=== PATIENT | female | born 1950 | race Caucasian/White ===

== ENCOUNTER → 2017-11-16 | Outpatient (CLI) | payer OTHER ==
--- NOTE | 2017-11-17 09:01 | RAD ---
EXAM DESCRIPTION: Ankle,Right 3 Views CLINICAL HISTORY: 67 years, Female, PAIN IN RIGHT ANKLE COMPARISON: None. TECHNIQUE: AP/lateral/oblique of the right ankle FINDINGS: Intact medial and lateral malleolus. There is no soft tissue swelling laterally or medially. Proximal metatarsals appear normal. Mild degenerative spurring of the dorsal midfoot. Intact dome of the talus. Lateral view shows no evidence of fracture of the body of the talus or calcaneus. Prominent plantar and dorsal calcaneal spurring is seen. No ankle joint narrowing, spurring or effusion. IMPRESSION: Negative for fracture or dislocation. Electronically signed by: Adilson Tapia MD 11/17/2017 8:58 AM CDT
--- NOTE | 2017-11-17 09:03 | RAD ---
EXAM DESCRIPTION: Ankle,Left 3 Views CLINICAL HISTORY: 67 years, Female, PAIN IN LEFT ANKLE COMPARISON: None. TECHNIQUE: AP/lateral/oblique of the left ankle FINDINGS: Intact medial and lateral malleolus. There is no soft tissue swelling laterally or medially. Proximal metatarsals appear intact. Mild degenerative spurring of the dorsal midfoot. Intact dome of the talus. Lateral view shows no evidence of fracture of the body of the talus or calcaneus. Dorsal and plantar calcaneal spurring is seen. No ankle joint narrowing, spurring or effusion. IMPRESSION: Negative for fracture or dislocation. Electronically signed by: Adilson Tapia MD 11/17/2017 9:01 AM CDT
--- NOTE | 2017-11-17 09:04 | RAD ---
EXAM DESCRIPTION: Hip,Left 2 Views CLINICAL HISTORY: 67 years, Female, PAIN IN LEFT HIP COMPARISON: None TECHNIQUE: AP and frog leg lateral views of the hip FINDINGS: 2 views of the left hip reveal no fracture or dislocation. No lytic bone lesion. Marked narrowing of the joint space is seen with sclerosis and eburnation on both sides of the joint. Prominent spurring at the left femoral head neck junction. Degenerative changes are seen in the lower L-spine and SI joints and pubic symphysis. IMPRESSION: Negative for fracture or dislocation. Advanced osteoarthrosis of the left hip. Electronically signed by: Adilson Tapia MD 11/17/2017 9:02 AM CDT
--- NOTE | 2017-11-17 09:05 | RAD ---
EXAM DESCRIPTION: Hip,Right 2 Views CLINICAL HISTORY: 67 years, Female, PAIN IN RIGHT HIP COMPARISON: None TECHNIQUE: AP and frog leg lateral views of the hip FINDINGS: 2 views of the right hip reveal no fracture or dislocation. No lytic bone lesion. Degenerative narrowing of the right hip joint space is seen with spur formation at the femoral head neck junction. Findings are consistent with osteoarthrosis which is not as advanced as on the left side. Degenerative changes are seen at the SI joints and pubic symphysis and in the lower lumbar spine. IMPRESSION: Negative for fracture or dislocation. Degenerative changes of right hip osteoarthrosis. Electronically signed by: Adilson Tapia MD 11/17/2017 9:03 AM CDT
--- NOTE | 2017-11-17 09:07 | RAD ---
EXAM DESCRIPTION: Knee,Left Complete CLINICAL HISTORY: 67 years, Female, PAIN IN LEFT KNEE COMPARISON: None TECHNIQUE: Three views of the left knee FINDINGS: Orthopedic hardware is seen in the proximal tibia with healed lateral tibial plateau fracture. Severe degenerative narrowing of the medial compartment is seen with medial and lateral joint line spurring and prominent spurring of the tibial spine. Standing views are obtained. Lateral view shows severe narrowing of the patellofemoral joint with posterior patellar spurring and anterior femoral trochlear spurring. [place] patellar view shows degenerative narrowing with prominent spurring. IMPRESSION: Advanced osteoarthrosis of the left knee. Orthopedic hardware in the proximal left tibia. Electronically signed by: Adilson Tapia MD 11/17/2017 9:05 AM CDT
--- NOTE | 2017-11-17 09:08 | RAD ---
EXAM DESCRIPTION: Pelvis CLINICAL HISTORY: 67 years Female, PAIN IN LEFT HIP COMPARISON: None. TECHNIQUE: Single frontal x-ray view of the pelvis and hips FINDINGS: Pelvic ring appears intact. Degenerative changes are seen in the lower L-spine and at the pubic symphysis. Degenerative osteoarthrosis of the hips is seen left worse than right with joint space narrowing and spurring around the femoral head neck junctions. No fracture or dislocation. No lytic osseous lesion. IMPRESSION: Degenerative osteoarthrosis of the hips, left worse than right. Electronically signed by: Adilson Tapia MD 11/17/2017 9:06 AM CDT
--- NOTE | 2017-11-17 09:11 | RAD ---
EXAM DESCRIPTION: Knee,Right Complete CLINICAL HISTORY: 67 years, Female, PAIN IN RIGHT KNEE COMPARISON: None TECHNIQUE: Three views of the right knee FINDINGS: No fracture or dislocation. Bones appear mildly osteopenic with prominent trabecular pattern. Markedly narrowed of medial more than lateral compartments on standing frontal view. Prominent spurring is seen at the medial and lateral joint lines. There is evidence of complete cartilage loss in the medial compartment. Lateral view shows normal position of the patella. Severe spurring at the patellofemoral joint with marked joint space narrowing. No definite suprapatellar knee joint effusion. Normal contour of quadriceps and patellar tendons. Marked spurring of the posterior femoral condyles. Mild lateral tilt of the patella is seen without subluxation on patellar sunrise view. Prominent posterior patellar and anterior femoral trochlear spurring. IMPRESSION: Advanced osteoarthrosis of the right knee. Electronically signed by: Adilson Tapia MD 11/17/2017 9:08 AM CDT
== END ==
LOC: RAD 09:15
PROVIDERS: ATTEND Orthopaedic Surgery
DX: M25.552 Pain in left hip (principal); M25.551 Pain in right hip; M25.561 Pain in right knee; M25.562 Pain in left knee; M25.571 Pain in right ankle and joints of right foot; M25.572 Pain in left ankle and joints of left foot

== ENCOUNTER → 2017-12-14 | Outpatient (CLI) | payer OTHER | LOC: RESP 10:14 | PROVIDERS: ATTEND Orthopaedic Surgery | DX: Z01.818 Encounter for other preprocedural examination (principal) ==

== ENCOUNTER 2017-12-19 05:31 | Inpatient (IN) | payer OTHER ==
--- NOTE | 2017-12-18 18:19 | HP ---
CHIEF COMPLAINT: Right knee pain. HISTORY OF PRESENT ILLNESS: Rola is a 67 year-old female with a history of severe knee pain that has been going on for years. Rola has had conservative measures, however has failed to gain relief. Because of Rola's ongoing severe pain she has requested operative intervention. After discussing the risks, benefits, and alternatives to that, she has given informed consent for that. PAST SURGICAL HISTORY: 1. Previous tibial plateau fracture surgery but she is unsure and there is no residual hardware. CURRENT MEDICATIONS: 1. Metformin. 2. Nabumetone. 3. Lisinopril. 4. Estradiol. 5. Atorvastatin. 6. Omeprazole. 7. Tramadol. ALLERGIES: PENICILLIN. CODE STATUS: FULL CODE. IMMUNIZATIONS: Up to date. FAMILY HISTORY: None pertinent to today's complaints. SOCIAL HISTORY: She does not drink, smoke or use any illicit drugs. REVIEW OF SYSTEMS: Negative except as indicated in the History of Present Illness. PHYSICAL EXAMINATION: VITAL SIGNS: Blood pressure 144/60, pulse 70. Height 4' 11", weight 152. MENTAL STATUS: The patient is awake, alert, and is able to give a good history and participate in the physical. The patient is oriented to person, place and time. SKIN: Normal tone and turgor. HEENT: Normocephalic, atraumatic. Pupils equal, round and reactive. Mucosal membranes are moist. NECK: Normal range of motion. No thyromegaly, no lymphadenopathy. CHEST: Normal respiratory excursion. CARDIAC: Regular rate and rhythm. No murmurs, rubs or gallops. MUSCULOSKELETAL: The bilateral upper extremities have full active range of motion without significant pain. She has intact sensation. Strength is 5/5. They are warm and well perfused. The left lower extremity shows full range of motion in the hip. Knee extension is full and she has no varus, valgus, anterior or posterior laxity, but she does have crepitus. She does have pretty severe tenderness diffusely about the knee. The right lower extremity shows full range of motion in the hip. She has crepitus with pain throughout the range of motion in the knee. She has no varus, valgus, anterior or posterior laxity, but she does have a varus deformity. She has 5/5 strength. X-RAYS: X-rays show severe arthritis. ASSESSMENT: 1. Arthritis. PLAN: The plan at this point is for total knee arthroplasty. We have discussed the risks, benefits, and alternatives to that and she has given informed consent for that. #[id number] [facility]
[2017-12-19] MEDS ORDERED: SODIUM CHL 0.9% 50ML MIN-BAG+ 50 ML IVPB ONE ×3 (06:45→19:53)
[2017-12-19] MEDS ORDERED: ceFAZolin SODIUM 1 GM VIAL ONE ×4 (06:45→19:53)
[2017-12-19] MEDS ORDERED: VANCOMYCIN HCL INJ 1,000 MG VIAL IVPB ONE ×4 (06:45→19:53)
[2017-12-19] MEDS ORDERED: TRANEXAMIC ACID 1,000 MG/10 ML VIAL ONE ×2 (06:45→06:46)
[2017-12-19] MEDS ORDERED: LACTATED RINGERS 1,000 ML ONE ×2 (06:45→07:02)
[2017-12-19] MEDS ORDERED: SODIUM CHLORIDE 0.9% 250ML 250 ML ONE ×3 (06:46→19:52)
[2017-12-19] MEDS ORDERED: SODIUM CHLORIDE 0.9% 100ML 100 ML IVPB ONE (06:46)
[2017-12-19] MEDS ORDERED: BUPIVACAINE 0.25% W/EPI 50 ML VIAL INJ ONE (06:48)
[2017-12-19] MEDS ORDERED: MORPHINE SULFATE *EPIDURAL* 0.5 MG/ML VIAL INJ ONE (07:00)
[2017-12-19] MEDS ORDERED: fentaNYL CITRATE INJ 50 MCG/ML AMP ONE (07:01)
[2017-12-19] MEDS ORDERED: MIDAZOLAM INJ 5 MG/5 ML VIAL ONE (07:02)
[2017-12-19] MEDS ORDERED: LIDOCAINE 2 % GEL 5 ML TUBE TOP ONE (07:02)
[2017-12-19] MEDS ORDERED: ONDANSETRON INJ 4 MG/2 ML VIAL IV PRN (07:09)
[2017-12-19] MEDS ORDERED: ZOLPIDEM TARTRATE 5 MG TAB PO PRN (07:09)
[2017-12-19] MEDS ORDERED: MORPHINE SULFATE INJ 10 MG/ML VIAL IM PRN (07:09)
[2017-12-19] MEDS ORDERED: TRANEXAMIC ACID INJ 1,000 MG in SODIUM CHLORIDE 0.9% 100ML 100 ML IVPB ONE (07:09)
[2017-12-19] MEDS ORDERED: PROMETHAZINE HCL INJ 12.5 MG in SODIUM CHLORIDE 0.9% 50ML 50 ML IVPB PRN (07:09)
[2017-12-19] MEDS ORDERED: ALUMINUM & MAGNESIUM HYDROXIDE 30 ML UD PO PRN (07:09)
[2017-12-19] MEDS ORDERED: MORPHINE SULFATE INJ 10 MG/ML VIAL IV PRN (07:09)
[2017-12-19] MEDS ORDERED: ACETAMINOPHEN 325 MG TAB PO PRN (07:09)
[2017-12-19] MEDS ORDERED: NALOXONE HCL INJ 0.4 MG/ML VIAL IV PRN (07:09)
[2017-12-19] MEDS ORDERED: SODIUM CHLORIDE 0.9% (FLUSH) 10 ML SYG IV PRN (07:09)
[2017-12-19] MEDS ORDERED: CYCLOBENZAPRINE HCL 10 MG TAB PO PRN (07:09)
[2017-12-19] MEDS ORDERED: TEMAZEPAM 15 MG CAP PO PRN (07:09)
[2017-12-19] MEDS ORDERED: DEX 5% W/NACL 0.45% 1000ML 1,000 ML IVS PRN (07:09)
[2017-12-19] MEDS ORDERED: BENZOCAINE-MENTH LOZ (CEPACOL) 1 EA LOZ MT PRN (07:09)
[2017-12-19] MEDS ORDERED: traMADol HCL 50 MG TAB PO PRN (07:09)
[2017-12-19] MEDS ORDERED: ACETAMINOPHEN 500 MG TAB PO PRN (07:09)
[2017-12-19] MEDS ORDERED: PROMETHAZINE HCL INJ 25 MG in SODIUM CHLORIDE 0.9% 50ML 50 ML IVPB PRN (07:09)
[2017-12-19] MEDS ORDERED: BISACODYL SUPPOSITORY 10 MG PR PRN (07:09)
[2017-12-19] MEDS ORDERED: MORPHINE PCA 1 MG/ML 100 ML BAG IVPB SCH (07:30)
[2017-12-19] MEDS ORDERED: PROPOFOL 200 MG/20 ML VIAL IV ONE (10:00)
--- NOTE | 2017-12-19 11:55 | RAD ---
EXAM DESCRIPTION: Knee,Right 2 or More Views CLINICAL HISTORY: 67 years, Female, TKA COMPARISON: None TECHNIQUE: Two views of the right knee FINDINGS: Total right hip arthroplasty is noted. No fracture or dislocation. Bones appear normally mineralized with normal trabecular pattern. The soft tissues is consistent with postoperative state. No complicating fracture. Lateral view shows normal position of the patella. IMPRESSION: Negative for fracture or dislocation. Electronically signed by: Adilson Tapia MD 12/19/2017 11:54 AM CDT
[2017-12-19] MEDS ORDERED: DEXTROSE 50% 25 GM/50 ML SYG IV PRN (12:01)
[2017-12-19] MEDS ORDERED: GLUCAGON INJ 1 MG VIAL SUBCU PRN (12:01)
[2017-12-19] MEDS: IV SET AND CAP CHANGE INJ INJ SCH (12:37)
[2017-12-19] MEDS: CELECOXIB 100 MG CAP PO SCH ×2 (12:37→16:21)
[2017-12-19] MEDS: MAGNESIUM OXIDE 400 MG TAB PO SCH (12:38)
[2017-12-19] MEDS: SODIUM CHLORIDE 0.45% 1000ML 1,000 ML IVS PRN (12:43)
[2017-12-19] MEDS: ceFAZolin SODIUM 1 GM in SODIUM CHL 0.9% 50ML MIN-BAG+ 50 ML IVPB SCH (15:59)
[2017-12-19] MEDS: INSULIN LISPRO 100 UNITS/ML PEN SUBCU SCH ×2 (16:20→20:56)
--- NOTE | 2017-12-19 17:22 | PCM.CORE ---
Physician DVT/VTE - Nurse DVT Assessment & Total Each Risk Factor Represents 5 Points: Elective Arthtroplasty Each Risk Factor Represents 2 Points: Age 60-74 Each Risk Factor is 1 Point: Obesity (BMI >25) DVT Assessment Score: 8 - 5 or more Very High Risk Treatments: Early Ambulation *, Sequential Compression Device Pharmacological: Enoxaparin 30mg SQ BID
[2017-12-19] MEDS: VANCOMYCIN HCL INJ 1,000 MG in SODIUM CHLORIDE 0.9% 250ML 250 ML IVPB SCH (17:44)
[2017-12-19] MEDS ORDERED: ENOXAPARIN SODIUM 30 MG/0.3 ML SYG SUBCU ONE (19:53)
[2017-12-19] MEDS: DOCUSATE CALCIUM 240 MG CAP PO SCH (20:37)
[2017-12-19] MEDS: ENOXAPARIN SODIUM 30 MG/0.3 ML SYG SUBCU SCH (21:45)
[2017-12-20] MEDS: ceFAZolin SODIUM 1 GM in SODIUM CHL 0.9% 50ML MIN-BAG+ 50 ML IVPB SCH ×2 (00:05→08:16)
[2017-12-20] MEDS: VANCOMYCIN HCL INJ 1,000 MG in SODIUM CHLORIDE 0.9% 250ML 250 ML IVPB SCH (06:15)
[2017-12-20] MEDS: INSULIN LISPRO 100 UNITS/ML PEN SUBCU SCH ×4 (07:01→21:00)
[2017-12-20] MEDS: HYDROcodone 5MG/APAP 325MG 1 EA TAB PO PRN ×2 (07:44→13:24)
[2017-12-20] MEDS: CELECOXIB 100 MG CAP PO SCH ×3 (07:44→20:38)
[2017-12-20] MEDS ORDERED: SODIUM CHL 0.9% 50ML MIN-BAG+ 50 ML IVPB ONE (08:08)
[2017-12-20] MEDS ORDERED: ceFAZolin SODIUM 1 GM VIAL ONE (08:09)
[2017-12-20] MEDS: metFORMIN HCL 500 MG TAB PO SCH (08:15)
[2017-12-20] MEDS ORDERED: NON-FORMULARY MEDICATION 1 EA MIS (Lisinopril & Hydrochlorothiazi [Lisinopril/Hctz 20-12.5 PO SCH (09:00)
[2017-12-20] MEDS ORDERED: ATORVASTATIN 10 MG TAB PO SCH (09:00)
--- NOTE | 2017-12-20 09:11 | CONS ---
SUPERVISING PHYSICIAN: Amador Arevalo MD DATE OF CONSULTATION: 12/19/17 REASON FOR CONSULTATION: Right total knee arthroplasty. HISTORY OF PRESENT ILLNESS: Ms. Huang is a 67-year-old, female patient that has a longstanding history of severe knee pain. She has tried multiple conservative measures which have failed to gain any significant relief. Due to ongoing severe pain, she requested operative intervention. Today, she was admitted for elective right total knee arthroplasty that was performed by Dr. Isidro Thrasher. She was seen postoperatively after recovery and was in stable condition. PAST MEDICAL HISTORY: 1. Diabetes mellitus on oral therapy. 2. Hypertension3. 3 Osteoarthritis. PAST SURGICAL HISTORY: 1. Left knee tibial plateau fracture with placement of a plate. 2. . 3. Appendectomy. 4. Cholecystectomy. 5. Hysterectomy. 6. Right breast mass removal, benign. HOME MEDICATIONS: 1. Lisinopril/hydrochlorothiazide 20/12.5 mg 1 tablet b.i.d. 2. Glucosamine and chondroitin 500/400 1 capsule daily. 3. Estradiol 0.05 mg daily. 4. Coenzyme Q10 100 mg daily. 5. Lipitor 10 mg daily. 6. Tramadol 50 mg as needed. 7. Omeprazole 40 mg daily. 8. Fish oil 1 tablet daily. 9. Nabumetone 500 mg twice daily. 10. Metformin 500 mg daily. ALLERGIES: PENICILLIN. FAMILY HISTORY: Positive for diabetes mellitus on both mother and father's side. Her father is with pancreatic cancer. Her mother at young age of unknown causes. There are multiple female family members with breast cancer. SOCIAL HISTORY: The patient lives in [place], [place]. She is , retired. She has never smoked and does not drink alcohol. REVIEW OF SYSTEMS: CONSTITUTIONAL: Denies any fevers, chills. HEENT: Denies headaches, nasal congestion, sore throat, earaches. RESPIRATORY: Denies shortness of breath, coughing, wheezing. CARDIOVASCULAR: Denies chest pain, palpitations or syncopal episodes. GASTROINTESTINAL: Denies abdominal pain, constipation, diarrhea, nausea or vomiting. EXTREMITIES: As noted in history of present illness. NEUROLOGIC: She denies any ataxia, seizures, syncopal episodes or other neurologic deficits. PHYSICAL EXAMINATION: VITAL SIGNS: Temperature 98.0. Pulse 138/72. Respirations 16. Saturation 96% on room air. Admission weight 69.4 kg. GENERAL: The patient is seen in the postoperative state. She is alert. She is utilizing CPM and visiting with family. She appears to be comfortable and in no acute distress. HEENT: Tympanic membranes clear bilaterally. Oropharynx is pink, moist without any lesions. NECK: Supple, nontender with full range of motion. No jugular venous distention noted. RESPIRATORY: Lungs clear to auscultation bilaterally without any rhonchi, wheezes, or rales. CARDIOVASCULAR: Regular rate and rhythm without any appreciable murmurs, gallops, or rubs. ABDOMEN: Soft, nontender. Positive bowel sounds. EXTREMITIES: Right knee has a bulky dressing in place currently with Iceman as well and is on CPM. Distal pulses are strong. Capillary refill is brisk. NEUROLOGIC: The patient is alert and oriented times three. LABORATORY: Postoperative hemoglobin and hematocrit pending. Blood sugar 121. RADIOLOGY: Knee x-ray, two view right knee, completed showing right total knee arthroplasty with no complicating fractures or dislocations with well positioning of the patella. ASSESSMENT: 1. Postoperative day 0 for an elective right total knee arthroplasty after failing to respond to conservative treatment measures, surgery being performed by Dr. Isidro Thrasher. 2. Osteoarthritis resulting in ongoing chronic knee pain failing to respond to conservative treatment measures requiring surgical intervention for symptom control. 3. Hypertension. 4. Diabetes mellitus on oral therapy. PLAN: The patient will be followed during her rehabilitation and physical therapy efforts postoperatively. We will monitor her blood sugars closely and vital signs. We will resume her home medications. She will be started on a sliding scale as per protocol. She will be on DVT prophylaxis as per protocol. I anticipate her length of stay to be 2 to 3 days and we will defer orthopedic management to Dr. Thrasher and physical therapy. Until discharge, we will continue to monitor the patient closely and treat appropriately with anticipation at discharge to have continued physical therapy at [facility]. #[id number] [facility]
[2017-12-20] MEDS: ESTRADIOL 0.05 MG TD SCH (09:12)
[2017-12-20] MEDS: hydroCHLOROthiazide 12.5 MG CAP PO SCH ×2 (09:21→20:38)
[2017-12-20] MEDS: LISINOPRIL 10 MG TAB PO SCH ×2 (09:22→20:38)
[2017-12-20] MEDS: OMEPRAZOLE CAP 20 MG CAP PO SCH (09:22)
[2017-12-20] MEDS: MAGNESIUM OXIDE 400 MG TAB PO SCH (09:22)
[2017-12-20] MEDS: ENOXAPARIN SODIUM 30 MG/0.3 ML SYG SUBCU SCH ×2 (10:43→21:42)
--- NOTE | 2017-12-20 11:24 | PN ---
DATE: 12/20/17 SUBJECTIVE: Ms. Huang is doing pretty well. She is up to the side of the bed. OBJECTIVE: Afebrile. Vital signs stable. Dressing is clean, dry and intact. ASSESSMENT: Status post total knee arthroplasty. PLAN: The plan at this point is for weight-bearing as tolerated along with CPM with increasing range of motion. [facility][id number] [facility]
--- NOTE | 2017-12-20 11:43 | OP ---
DATE OF PROCEDURE: 12/19/17 PREOPERATIVE DIAGNOSIS: 1. Right knee osteoarthritis. POSTOPERATIVE DIAGNOSIS: 1. Right knee osteoarthritis. PROCEDURE: 1. Right total knee arthroplasty. SURGEON: Isidro Thrasher MD. POLICE CADET: Severino Swartz CST, SA-C. ANESTHESIA: General. COMPLICATIONS: None. FINDINGS: Severe osteoarthritis of the knee with varus deformity. INDICATION: Ms. Huang has a long history of severe knee pain that has been progressively worse. She has had injections as well as physical therapy, however, has failed to gain relief and has noticed increasing deformity. Because of that, she has requested operative intervention. After discussing the risks, benefits and alternatives to that, the patient has given informed consent for total knee arthroplasty. PROCEDURE: The patient was brought to the Operating Room and placed in supine position. General anesthesia was induced and the patient's leg was sterilely prepped and draped. Following prepping and draping, the distal femur was exposed and using an intramedullary guide, the distal femoral cut was made. The appropriate sized cutting block was measured, pinned into place, and the anterior, posterior, and chamfer cuts were made. The ACL was transected and the tibia was subluxed. Both the medial and lateral menisci were removed. An intramedullary guide was used to make the proximal tibial cut. The appropriate sized base plate was placed and a trial polyethylene was placed. The trial femur was placed, the knee was reduced, and the knee was taken through a range of motion. The knee was stable in anterior, posterior, varus and valgus stress. The patella tracked anatomically without evidence of subluxation or dislocation. After trialing, the trial components were removed and the bony surfaces were thoroughly irrigated with saline. Following irrigation, the surfaces were dried and the final components were cemented into place. The excess cement was removed and the remaining cement was allowed to cure. The knee was again taken through a range of motion to confirm stability. The wound was then irrigated with saline and closure was performed using PDS to approximate the arthrotomy followed by closure of the subcutaneous tissues with a combination of running and interrupted Monocryl sutures. Sterile dressing was placed. The patient was awoken from anesthesia and taken to Recovery. POSTOPERATIVE INSTRUCTIONS: The patient will be weight-bearing as tolerated on postoperative day 1. COMPONENTS: [place] Triathlon knee, size 3 femur, size 3 tibia, 9 mm insert. [facility][id number] [facility]
--- NOTE | 2017-12-20 15:18 | PN ---
DATE: 12/20/17 SUPERVISING PHYSICIAN: Amador Arevalo M.D. SUBJECTIVE: The patient is lying in her hospital bed. She complained of nausea earlier but the medicine they are giving her is helping. Otherwise she complained of not being able to sleep last night. I informed her she has a sleeping pill that she can ask for and she needs to ask for that tonight. Otherwise denies chest pain, shortness of breath, constipation or diarrhea. OBJECTIVE: VITAL SIGNS: Temperature 99.5, pulse rate 80, blood pressure 154/75 , respiratory rate 18, O2 sat 92% on room air. RESPIRATORY: Essentially clear to auscultation bilaterally. CARDIAC: Regular rate and rhythm. EXTREMITIES: The dressing to her right knee is dry and intact. She is on the CPM machine at this time and her bilateral pedal pulses are palpable at +2 bilaterally. LABORATORY: Hemoglobin 10, hematocrit 30.1. Blood sugars have run between 104 and 142. All other labs and films have been reviewed via the EMR. ASSESSMENT: 1. Osteoarthritis of the right knee status post right total knee arthroplasty postoperative day #1. Surgery was performed by Dr. Isidro Thrasher, orthopedic surgeon. 2. Osteoarthritis resulting in ongoing chronic knee pain failing to respond to conservative treatment requiring surgery for symptomatic control. 3. Hypertension. 4. Diabetes mellitus on oral therapy. PLAN: We will continue present supportive care. I have encouraged good pulmonary hygiene. She will continue with physical therapy for strengthening and conditioning. Orthopedic issues will be per Dr. Thrasher. Otherwise we will continue to monitor the patient closely and follow as needed. Dr. Arevalo is the collaborating physician available for consultation. #[id number] [facility]
[2017-12-20] MEDS: SODIUM CHLORIDE 0.45% 1000ML 1,000 ML IVS PRN (19:55)
[2017-12-20] MEDS: DOCUSATE CALCIUM 240 MG CAP PO SCH (20:38)
[2017-12-20] MEDS: ATORVASTATIN 10 MG TAB PO SCH (20:39)
[2017-12-21] MEDS: OMEPRAZOLE CAP 20 MG CAP PO SCH (06:02)
[2017-12-21] MEDS: INSULIN LISPRO 100 UNITS/ML PEN SUBCU SCH ×4 (08:52→21:22)
[2017-12-21] MEDS: hydroCHLOROthiazide 12.5 MG CAP PO SCH ×2 (08:54→21:23)
[2017-12-21] MEDS: CELECOXIB 100 MG CAP PO SCH ×2 (08:54→21:19)
[2017-12-21] MEDS: metFORMIN HCL 500 MG TAB PO SCH (08:54)
[2017-12-21] MEDS: LISINOPRIL 10 MG TAB PO SCH ×2 (08:55→21:18)
[2017-12-21] MEDS: ESTRADIOL 0.05 MG TD SCH (08:56)
[2017-12-21] MEDS: ENOXAPARIN SODIUM 30 MG/0.3 ML SYG SUBCU SCH ×2 (08:56→21:57)
[2017-12-21] MEDS: MAGNESIUM OXIDE 400 MG TAB PO SCH (08:56)
[2017-12-21] MEDS: SODIUM CHLORIDE 0.9% (FLUSH) 10 ML SYG IV SCH ×2 (08:57→21:23)
[2017-12-21] MEDS: HYDROcodone 5MG/APAP 325MG 1 EA TAB PO PRN ×2 (13:05→21:24)
--- NOTE | 2017-12-21 18:03 | PN ---
SUPERVISING PHYSICIAN: Amador Arevalo MD DATE: 12/21/17 SUBJECTIVE: The patient is sitting up in her hospital bed. She is eating her meal. She has no complaints of nausea, vomiting, diarrhea or constipation. She feels like she did well in therapy today. OBJECTIVE: VITAL SIGNS: Afebrile. Heart rate 80. Blood pressure 142/70. Respiratory rate 16. O2 saturation 95% on room air. RESPIRATORY: Essentially clear to auscultation bilaterally. CARDIAC: Regular rate and rhythm. EXTREMITIES: Dressing to the right knee is dry and intact. Bilateral pedal pulses are palpable at +2. NEUROLOGIC: Awake, alert and oriented times three. LABORATORY: Her blood sugars have run between 117 and 182. All other labs and films have been reviewed via the EMR. ASSESSMENT: 1. Osteoarthritis of the right knee status post right total knee arthroplasty postoperative day #2. Surgery was performed by Dr. Isidro Thrasher, orthopedic surgeon. 2. Hypertension. 3. Diabetes mellitus on oral therapy. PLAN: We will continue present supportive care. She will continue her strengthening and conditioning per physical therapy. Orthopedic issues will be per Dr. Thrasher, orthopedic surgeon. I have encouraged good pulmonary hygiene. The plan is for her to be discharged most likely Monday. She will have physical therapy at a [place] rehab facility. We will continue to monitor the patient closely and follow as needed. Dr. Arevalo is the collaborating physician and available for consultation. #[id number] [facility]
[2017-12-21] MEDS: ATORVASTATIN 10 MG TAB PO SCH (21:18)
[2017-12-21] MEDS: DOCUSATE CALCIUM 240 MG CAP PO SCH (21:19)
[2017-12-21] MEDS: MAGNESIUM HYDROXIDE 30 ML UD PO PRN (21:57)
[2017-12-22] MEDS: HYDROcodone 5MG/APAP 325MG 1 EA TAB PO PRN ×3 (02:06→20:39)
[2017-12-22] MEDS: OMEPRAZOLE CAP 20 MG CAP PO SCH (06:07)
[2017-12-22] MEDS: ESTRADIOL 0.05 MG TD SCH (08:33)
[2017-12-22] MEDS: MAGNESIUM OXIDE 400 MG TAB PO SCH (08:33)
[2017-12-22] MEDS: hydroCHLOROthiazide 12.5 MG CAP PO SCH ×2 (08:33→20:38)
[2017-12-22] MEDS: metFORMIN HCL 500 MG TAB PO SCH (08:34)
[2017-12-22] MEDS: LISINOPRIL 10 MG TAB PO SCH ×2 (08:34→20:37)
[2017-12-22] MEDS: ENOXAPARIN SODIUM 30 MG/0.3 ML SYG SUBCU SCH ×2 (08:34→21:31)
[2017-12-22] MEDS: INSULIN LISPRO 100 UNITS/ML PEN SUBCU SCH ×4 (08:34→21:31)
[2017-12-22] MEDS: IV SET AND CAP CHANGE INJ INJ SCH (08:35)
[2017-12-22] MEDS: CELECOXIB 100 MG CAP PO SCH ×2 (08:38→20:39)
[2017-12-22] MEDS: SODIUM CHLORIDE 0.9% (FLUSH) 10 ML SYG IV SCH ×2 (09:02→20:38)
[2017-12-22] MEDS: MAGNESIUM HYDROXIDE 30 ML UD PO PRN (17:51)
--- NOTE | 2017-12-22 19:48 | PN ---
SUPERVISING PHYSICIAN: Amador Arevalo MD DATE: 12/22/17 SUBJECTIVE: The patient is sitting up eating her dessert in her recliner in his hospital room. She feels much improved today although she said she still struggles with her physical therapy, but is feeling much better. She denies chest pain, shortness of breath, nausea, vomiting. She does have slight constipation but she has been getting laxatives for that. OBJECTIVE: VITAL SIGNS: Afebrile. Heart rate 76. Blood pressure 104/61. Respiratory rate 16. O2 saturation 94% on room air. RESPIRATORY: Essentially clear to auscultation bilaterally. CARDIAC: Regular rate and rhythm. EXTREMITIES: Dressing to her right knee is dry and intact. NEUROLOGIC: Awake, alert and oriented times three. LABORATORY: Blood sugars have run between 111 and 182. All other labs and films have been reviewed via the EMR. ASSESSMENT: 1. Osteoarthritis of the right knee status post right total knee arthroplasty , postoperative day #3. Surgery was performed by Dr. Isidro Thrasher, orthopedic surgeon. 2. Hypertension. 3. Diabetes mellitus on oral therapy. PLAN: We will continue present supportive care. She will continue with physical therapy for strengthening and conditioning. Orthopedic issues will be per Dr. Thrasher. We initiated bladder training and we will discontinue the Ramirez as soon as that has been completed. Plan for discharge in the next 24 to 48 hours and she will have her physical therapy with [facility]. Otherwise, we will continue to monitor the patient closely and follow as needed. Dr. Arevalo is the collaborating physician and available for consultation. [facility][id number] [facility]
[2017-12-22] MEDS: ATORVASTATIN 10 MG TAB PO SCH (20:38)
[2017-12-22] MEDS: DOCUSATE CALCIUM 240 MG CAP PO SCH (20:38)
[2017-12-22] MEDS ORDERED: MAGNESIUM HYDROXIDE 30 ML UD PO ONE (21:00)
[2017-12-22] MEDS ORDERED: BISACODYL SUPPOSITORY 10 MG PR ONE (21:00)
[2017-12-23] MEDS: HYDROcodone 5MG/APAP 325MG 1 EA TAB PO PRN ×2 (02:22→09:41)
[2017-12-23] MEDS: OMEPRAZOLE CAP 20 MG CAP PO SCH (06:18)
[2017-12-23] MEDS: INSULIN LISPRO 100 UNITS/ML PEN SUBCU SCH ×2 (07:13→12:11)
[2017-12-23] MEDS: metFORMIN HCL 500 MG TAB PO SCH (08:06)
[2017-12-23] MEDS: MAGNESIUM OXIDE 400 MG TAB PO SCH (08:07)
[2017-12-23] MEDS: hydroCHLOROthiazide 12.5 MG CAP PO SCH (08:07)
[2017-12-23] MEDS: CELECOXIB 100 MG CAP PO SCH (08:07)
[2017-12-23] MEDS: LISINOPRIL 10 MG TAB PO SCH (08:07)
[2017-12-23] MEDS: SODIUM CHLORIDE 0.9% (FLUSH) 10 ML SYG IV SCH (08:08)
[2017-12-23] MEDS: ESTRADIOL 0.05 MG TD SCH (08:10)
[2017-12-23] MEDS: ENOXAPARIN SODIUM 30 MG/0.3 ML SYG SUBCU SCH (09:36)
[2017-12-23 11:27] VITALS: O2SAT 95
[2017-12-23 18:48] VITALS: BP 108/66; TEMP 97.6
--- NOTE | 2017-12-24 07:58 | PN ---
DATE: 12/21/17 SUBJECTIVE: Ms. Huang is doing well and has begun weightbearing as tolerated and continued on with her CPM. OBJECTIVE: She is afebrile. Vital signs are stable. Wound is clean. There are no signs or symptoms of infection. . ASSESSMENT: Status post total knee arthroplasty. PLAN: The plan is to continue on with weight-bearing as tolerated. #[id number] [facility]
--- NOTE | 2017-12-24 07:59 | PN ---
DATE: 12/22/17 SUBJECTIVE: Ms. Huang is doing well and is ambulating with minimal assist. OBJECTIVE: She is afebrile. Vital signs are stable. Wound is clean. There are no signs or symptoms of infection. . ASSESSMENT: Status post total knee arthroplasty. PLAN: The plan is to continue weight-bearing as tolerated. Continue increasing CPM. [facility][id number] [facility]
--- NOTE | 2017-12-24 08:03 | PN ---
DATE: 12/23/18 SUBJECTIVE: Ms. Huang is doing well and is ready to go home. OBJECTIVE: She is afebrile. Vital signs are stable. Wound is clean. There are no signs or symptoms of infection. . ASSESSMENT: Status post total knee arthroplasty. PLAN: The plan is for discharge. She has been cleared by physical therapy. #[id number] [facility]
--- NOTE | 2017-12-25 10:57 | DS ---
SUPERVISING PHYSICIAN: Amador Arevalo MD DISCHARGE DIAGNOSES: 1. Osteoarthritis of the right knee status post right total knee arthroplasty , postoperative day #4. Surgery was performed by Dr. Isidro Thrasher, orthopedic surgeon. 2. Hypertension. 3. Diabetes mellitus on oral therapy REASON FOR HOSPITALIZATION: Ms. Huang is a 67 year-old female who resides in [place], [place]. She has a longstanding history of severe knee pain going on for years. She has tried multiple conservative treatment measures and has failed to gain significant relief. Due to ongoing pain she requested elective surgery for replacement of the right knee. She is admitted for elective total knee arthroplasty that was performed by Dr. Isidro Thrasher. LABORATORY STUDIES: Postoperative hemoglobin and hematocrit 10.0 and 30.1 hematocrit. Chemistries showed blood sugars were between 111 and 128. MICROBIOLOGY: No specimens submitted. RADIOLOGY: There were no additional studies submitted postoperatively. PROCEDURES: Total right knee arthroplasty by Dr. Isidro Thrasher. Please see his operative report for details. HOSPITAL COURSE: Ms. Huang is a 67 year-old female admitted on 09/07 for elective total right knee arthroplasty. She did well from surgery. She had no complications, had good pain control and was followed postoperatively. She was able to participate with physical therapy. She progressed well in her physical therapy and it was felt on date of discharge, , that she could continue in the outpatient setting in [facility]. PLAN: Ms. Huang is discharged on 12/23/17 with instructions to followup with Dr. Thrasher as scheduled and have rehabilitation continued at [facility] therapy with appointment on Monday, December 25, 2017 at 3 o'clock. She is to resume home medications as instructed. She is to return to the hospital should she have any signs or symptoms or call Dr. Thrasher. Prescription for outpatient physical therapy was provided on discharge which was to be taken to [facility] upon arrival. CPM #115 was sent home for continued use. She was instructed to return to [facility] outpatient physical therapy for concerns Bedside commode was to be purchased at [facility]. Diet: Diabetic diet as tolerated. Activities: only a walker as per physical therapy, treatment as tolerated. She can shower, no tub bath. Management as per Dr. Thrasher's postoperative care instructions. Medications at discharge include: 1. Flexeril 10 mg every 8 hours as needed for spasms. 2. Xarelto 10 mg daily for 8 days. 3. Restoril 15 mg at bedtime as needed for insomnia. 4. Tramadol for pain control 50 mg orally if needed, #30. CONDITION AT DISCHARGE: Stable and improved. #[id number] MTDD
== END 2017-12-23 15:00 | disposition home or self-care (01) | DRG 554 ==
LOC: AMB 05:31 → MS 11:15
PROVIDERS: ADMIT Orthopaedic Surgery; ATTEND Nurse Practitioner Family
DX: M17.11 Unilateral primary osteoarthritis, right knee (principal); G89.29 Other chronic pain; I10 Essential (primary) hypertension; E11.9 Type 2 diabetes mellitus without complications; G47.00 Insomnia, unspecified; K21.9 Gastro-esophageal reflux disease without esophagitis; I25.2 Old myocardial infarction; Z88.0 Allergy status to penicillin; Z79.84 Long term (current) use of oral hypoglycemic drugs; Z79.899 Other long term (current) drug therapy; K59.00 Constipation, unspecified